=== PATIENT | male | born 1955 | race Caucasian/White ===

== ENCOUNTER 2023-04-26 06:38 | Emergency (ER) | payer OTHER ==
[~2023-04-26] VITALS: Ht 172.7 cm; Wt 81.8 kg
[2023-04-26 06:43] VITALS: BP 164/90; PULSE 88; RESP 18; TEMP 98.5
[2023-04-26 08:14] LABS: APPEARANCE,URINE CLEAR (CLEAR); BILIRUBIN,URINE NEGATIVE (NEGATIVE); COLOR,URINE LIGHT YELLOW (YELLOW); GLUCOSE, URINE (UA) 150-200 mg/dL (NEGATIVE); KETONES,URINE NEGATIVE (NEGATIVE); LEUKOCYTE ESTERASE ,URINE MODERATE (NEGATIVE); NITRATE,URINE NEGATIVE (NEGATIVE); OCCULT BLOOD,URINE TRACE (NEGATIVE); PH,URINE 5.5 (5.0-8.0); PROTEIN,URINE NEGATIVE (NEGATIVE); SPECIFIC GRAVITIY, URINE 1.013 (1.003-1.030); UROBILINOGEN,URINE <=1.0 mg/dL (<=1.0)
[2023-04-26 08:23] LABS: BACTERIA,URINE Few /HPF (None Seen); RBC,URINE 0-2 /HPF (0-2)
[2023-04-26] MEDS ORDERED: TAMS0.4C94 PO (08:40)
[2023-04-26] MEDS ORDERED: LEVO-72 PO (08:40)
== END 2023-04-26 09:10 | disposition home or self-care (01) ==
LOC: EMS 06:40
DX: N39.0 Urinary tract infection, site not specified (principal); R33.9 Retention of urine, unspecified; I10 Essential (primary) hypertension
CPT/HCPCS: 81001; 87086; 87186; 99283; 99284